=== PATIENT | male | born 1955 | race African-American/Black ===

== ENCOUNTER 2017-01-08 17:24 | Emergency (ER) | payer MEDICAID ==
[~2017-01-08] VITALS: Ht 175.3 cm; Wt 71.8 kg
[2017-01-08] MEDS ORDERED: HYDROCODONE/ACETAMINOPHEN 5-325 MG TABLET PO ONE (19:00)
[2017-01-08] MEDS ORDERED: PERTUSS(ACELL),DIPH,TET VAC/PF 0.5 ML VIAL IM ONE (19:00)
[2017-01-08 19:38] VITALS: BP 127/87
== END 2017-01-08 19:40 | disposition home or self-care (01) ==
LOC: EMS 17:30
DX: S61.012A Laceration without foreign body of left thumb without damage to nail, initial encounter (principal); F12.90 Cannabis use, unspecified, uncomplicated; Z88.0 Allergy status to penicillin; W26.0XXA Contact with knife, initial encounter; Y93.89 Activity, other specified; Y92.89 Other specified places as the place of occurrence of the external cause; Y99.8 Other external cause status
CPT/HCPCS: 90715; 99283